=== PATIENT | female | born 1945 | race Caucasian/White ===

== ENCOUNTER 2022-06-12 16:54 | Emergency (ER) | payer MEDICARE ==
[2022-06-12] MEDS ORDERED: Dexamethasone 10 MG/ML VIAL ONE (17:24)
[2022-06-12] MEDS ORDERED: Magnesium 2 GM/50 ML BAG (IN WATER) ONE (17:24)
[2022-06-12] MEDS ORDERED: Ipratropium/Albuterol 3 ML NEB ONE (17:26)
[2022-06-12 18:12] LABS: #Eosinphils 0.2 10x3/uL (0.0-0.5); #Monocytes 0.4 10x3/uL (0.0-1.1); %Basophils 0.4 % (0.0-2.0); %Eosinophils 2.4 % (0.0-6.0); %Lymphocytes 19.9 % (18.0-47.0); %Monocytes 4.3 % (0.0-10.0); %Neutrophils 72.6 % (40.0-75.0); ALT (SGPT) 18 U/L (8-55); AST (SGOT) 23 U/L (5-34); Albumin 3.9 g/dL (3.4-4.8); Alkaline Phosphatase 59 U/L (40-110); Anion Gap 15 mmol/L (10-20); BUN (Urea Nitrogen) 10 mg/dL (9.8-20.1); CK (CPK) 76 U/L (29-168); Calc. Creatinine Clearance 0 mL/min (70-130); Calcium 9.9 mg/dL (7.8-10.44); Carbon Dioxide 28 mmol/L (23-31); Chloride 100 mmol/L (98-107); Estimated GFR 39; Globulin 2.7 g/dL (2.4-3.5); Glucose 99 mg/dL (83-110); Hemoglobin 11.7 g/dL (12.0-15.5); Lipase 17 U/L (8-78); Mean Corpuscular HGB CONC 36.6 g/dL (32.0-36.0); Mean Corpuscular Hemoglobin 33.2 pg (27.0-33.0); Mean Corpuscular Volume 90.9 fl (81.6-98.3); Mean Platelet Volume 9.4 fl (7.4-10.4); Platelet Count 268 10x3/uL (150-450); Potassium 2.8 mmol/L (3.5-5.1); Protein, Total 6.6 g/dL (5.8-8.1); RBC Distribution Width 13.1 % (11.5-14.5); Red Blood Cell (RBC) Count 3.52 10x6/uL (3.90-5.03); Sodium 140 mmol/L (136-145); White Blood Cell (WBC) Count 8.2 10x3/uL (3.5-10.5)
[2022-06-12 19:01] LABS: SARS-CoV-2 NAA Rapid Test Not Detected (NotDetected)
== END 2022-06-12 19:05 | disposition home or self-care (01) ==
LOC: CSHERS 16:54
DX: K21.9 Gastro-esophageal reflux disease without esophagitis (principal); Z20.822 Contact with and (suspected) exposure to COVID-19; Z87.891 Personal history of nicotine dependence
CPT/HCPCS: 71045; 80053; 82550; 83690; 83880; 84484; 85025; 93005; 94644; 94760; 96365; 96375; 99284; U0002; J1100; J3475; J7611; J7620